=== PATIENT | female | born 2000 | race Caucasian/White ===

== ENCOUNTER 2020-02-02 12:47 | Emergency (ER) | payer OTHER ==
[~2020-02-02] VITALS: Ht 157.5 cm; Wt 48.5 kg
[2020-02-02 13:02] VITALS: Ht 157.5 cm; Wt 48.5 kg
[2020-02-02 14:19] VITALS: BP 127/82
== END 2020-02-02 14:19 | disposition home or self-care (01) ==
LOC: ED 12:47
DX: S61.303A Unspecified open wound of left middle finger with damage to nail, initial encounter (principal); W26.0XXA Contact with knife, initial encounter; Y93.89 Activity, other specified; Y92.89 Other specified places as the place of occurrence of the external cause; Y99.0 Civilian activity done for income or pay
CPT/HCPCS: 90715